=== PATIENT | female | born 1960 | race Caucasian/White ===

== ENCOUNTER 2017-05-23 01:21 | Emergency (ER) | payer MEDICAID ==
[~2017-05-23] VITALS: Ht 167.6 cm; Wt 73.0 kg
[2017-05-23] MEDS ORDERED: MORPHINE SULFATE 4 MG/ML CPJ (NOT FOR IM USE) IV STA (01:42)
[2017-05-23] MEDS ORDERED: ONDANSETRON HCL 4MG/2ML VIAL IV STA (01:42)
[2017-05-23] MEDS ORDERED: NITROGLYCERIN OINT 1GM/INCH UDPKT TD ONE (01:45)
[2017-05-23] MEDS ORDERED: ASPIRIN 81MG TABLET PO ONE (01:45)
[2017-05-23 02:26] LABS: BASOPHILS % 0.9 % (0.0-2.0); EOSINOPHILS % 1.9 % (0.0-5.0); HEMATOCRIT. 37.8 % (36.0-48.0); HEMOGLOBIN. 12.5 g/dL (12.0-16.0); LYMPHOCYTES % 24.8 % (20.0-50.0); MEAN CORPUSCULAR HEMOGLOBIN 28.6 pg (28.0-32.0); MEAN CORPUSCULAR VOLUME 86.2 fL (81.0-99.0); MONOCYTES % 8.3 % (2.0-8.0); NEUTROPHILS % 64.1 % (40.0-76.0); PLATELET 172 x1000/uL (130-400); RED BLOOD CELL COUNT 4.39 mill/uL (4.2-5.4)
[2017-05-23 02:35] LABS: D-DIMER 0.36 mg/L FEU (<0.50); PROTHROMBIN TIME 10.7 sec (9.4-11.6)
[2017-05-23 02:40] LABS: CARBON DIOXIDE 26 mEq/L (21-32); CHLORIDE 108 mEq/L (98-107); ETHANOL BLOOD < 10 mg/dL; TROPONIN I < 0.02 ng/mL (0.00-0.04)
[2017-05-23 05:43] VITALS: BP 115/74
== END 2017-05-23 06:13 | disposition home or self-care (01) ==
LOC: ER 01:21
DX: R07.89 Other chest pain (principal); R53.1 Weakness; R03.0 Elevated blood-pressure reading, without diagnosis of hypertension; I51.9 Heart disease, unspecified; F32.9 Major depressive disorder, single episode, unspecified; F41.9 Anxiety disorder, unspecified
CPT/HCPCS: 36415; 71010; 80053; 83690; 83880; 84484; 85025; 85379; 85610; 93005; 96374; 96375; 99285; G0482; J2270; J2405; Z7610